=== PATIENT | female | born 1930 | race Caucasian/White ===

== ENCOUNTER 2020-04-12 16:42 | Inpatient (IN) | payer OTHER, BC ==
[2020-04-12] MEDS ORDERED: ACETAMINOPHEN 325 MG TABLET (FP) PO ONE (17:01)
[2020-04-12] MEDS ORDERED: ACETAMINOPHEN 325 MG TABLET (FP) ONE (17:14)
--- NOTE | 2020-04-12 17:25 | PDOC ---
History of Present Illness - General Chief Complaint: Cold Symptoms Stated Complaint: FEVER/NAUSEA Time Seen by Provider: 04/12/20 16:52 History Source: Patient Exam Limitations: No Limitations - History of Present Illness Initial Comments: Keysha Deutsch 89 F with PMH of HTN, presents to ER with 1D of Fever and vomiting x 2. 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 EMS temp: 103. She also reports th at she noticed redness and swelling in her right lower extremity this morning. She denies any chills, chest pain, cough, SOB, abdominal pain, diarrhea, Constipation, dysuria. No recent sick contact, lives with her daughter, who works at [employer]. 04/12/20 17:20 Past History - Medical History Allergies/Adverse Reactions: Allergies Allergy/AdvReac Type Severity Reaction Status Date / Time No Known Allergies Allergy Verified 04/12/20 18:05 Home Medications: Ambulatory Orders Diltiazem Cd [Cardizem Cd -] 240 mg PO DAILY 09/12/11 Multivit-Min/FA/Lycopene/Lut [Centrum Silver Tablet] 1 each PO DAILY 04/21/12 Omeprazole [Prilosec (RX)] 20 mg PO DAILY 04/21/12 Anemia: No Asthma: No Cancer: No Cardiac Disorders: No CVA: No COPD: No CHF: No Dementia: No Diabetes: No Dialysis: Yes (in the past) GI Disorders: No (ABD. PAIN) Disorders: No HTN: Yes Hypercholesterolemia: No Liver Disease: No Seizures: No Thyroid Disease: No - Surgical History Abdominal Surgery: No Appendectomy: No Cardiac Surgery: No Cholecystectomy: Yes Lung Surgery: No Neurologic Surgery: No Orthopedic Surgery: No - Psycho-Social/Smoking History Smoking Status: No Smoking History: Never smoked Have you smoked in the past 12 months: No Number of Cigarettes Smoked Daily: 0 - Substance Abuse Hx (Audit-C & DAST Scrn) How often the patient has a drink containing alcohol: Never Score: In Men: 4 or > Positive; In Women: 3 or > Positive: 0 Screen Result (Pos requires Nsg. Audit-10AR): Negative In the last yr the pt used illegal drug/Rx for NonMed reason: No Score: Yes response is considered Positive: 0 Screen Result (Positive result requires Nsg. DAST-10): Negative Review of Systems - Review of Systems Able to Perform ROS?: Yes Is the patient limited Czech proficient: No Constitutional: Yes: Fever. No: Chills, Night Sweats, Weakness HEENTM: No: Blurred Vision, Nose Congestion, Throat Pain, Difficulty Swallowing Respiratory: No: Cough, Shortness of Breath Cardiac (ROS): Yes: Edema. No: Chest Pain, Lightheadedness, Palpitations ABD/GI: Yes: Nausea, Vomiting. No: Constipated, Diarrhea : No: Burning, Dysuria Musculoskeletal: Yes: Joint Pain (chronic). No: Back Pain, Muscle Pain Integumentary: Yes: Erythema (RLE), Lesions (small healed induration w/scab on lateral aspect of RLE) Neurological: No: Headache, Numbness, Paresthesia, Dizziness *Physical Exam - Vital Signs Last Vital Signs Temp Pulse Resp BP Pulse Ox 100.4 F H 112 H 19 130/62 96 04/12/20 16:51 04/12/20 16:51 04/12/20 16:51 04/12/20 16:51 04/12/20 16:51 - Physical Exam General Appearance: No: Apparent Distress HEENT: positive: Normal ENT Inspection. negative: Nasal Congestion, Rhinorrhea Neck: positive: Supple. negative: Carotid bruit Respiratory/Chest: positive: Lungs Clear, Normal Breath Sounds. negative: Chest Tender, Rales, Rhonchi Cardiovascular: positive: Regular Rhythm, S1, S2, Edema, Murmur (4/6 systolic murmur anlong the left sternal border), Tachycardia. negative: JVD Vascular Pulses: Carotid (R): 2+, Carotid (L): 2+ Gastrointestinal/Abdominal: positive: Normal Bowel Sounds. negative: Tender, Guarding Integumentary: positive: Normal Color, Warm, Erythema (RLE medial and lateral aspect), Swelling (RLE>LLE, warm to touch, non tender) Neurologic: positive: Alert. negative: Fully Oriented (AAOx2, not oriented to month/year), Confused, Disoriented ED Treatment Course - LABORATORY CBC & Chemistry Diagram: 04/13/20 06:55 04/13/20 06:55 Medical Decision Making - Medical Decision Making 89 F with PMH of HTN, presents to ER with 1D of Fever and vomiting x 2. New onset of RLE swelling and erythema. #RLE cellulitis - CBC, CMP, LAC, Mg, PT(INR)/PTT - Ua - CXR: no acute pathology - Trop negative x1 - Blood culture, urine culture - Tylenol 975 PO - U/S b/l LE: no dvt - Vanc 1 gm + Rocephin 1 gm: UTI and RLE cellulitis - Dispo: Adm for IV abx 04/12/20 20:24 Discharge - Discharge Information Problems reviewed: Yes Clinical Impression/Diagnosis: UTI (urinary tract infection), Cellulitis, Leukocytosis Condition: Guarded - Follow up/Referral - Patient Discharge Instructions - Post Discharge Activity
[2020-04-12 17:51] LABS: BASO % 0.2 % (0-2.0); HEMATOCRIT 35.1 % (32.4-45.2); HEMOGLOBIN 11.5 GM/dL (10.7-15.3); MCH 32.6 pg (25.7-33.7); MCHC 32.8 g/dl (32.0-36.0); MEAN CELL VOLUME 99.2 fl (80-96); MEAN PLT VOLUME 7.7 fl (7.5-11.1); MONO % 4.8 % (3.8-10.2); PLATELET COUNT 231 K/MM3 (134-434); RBC 3.54 M/mm3 (3.60-5.2); RDW 12.3 % (11.6-15.6); WHITE BLOOD COUNT 18.8 K/mm3 (4.0-10.0)
[2020-04-12 17:59] LABS: INR 1.06 (0.83-1.09); PROTHROMBIN TIME (PATIENT) 12.5 SEC (9.7-13.0)
[2020-04-12 18:02] LABS: ACTIVATED PTT 25.7 SECONDS (25.2-36.5)
[2020-04-12 18:23] LABS: ALBUMIN 3.8 g/dl (3.4-5.0); BLOOD UREA NITROGEN 20.7 mg/dL (7-18); CALCIUM 9.3 mg/dL (8.5-10.1); GLUCOSE,RANDOM 141 mg/dL (74-106); MAGNESIUM 2.1 mg/dL (1.8-2.4); POTASSIUM 4.3 mmol/L (3.5-5.1); TOT PROT 6.5 g/dl (6.4-8.2)
[2020-04-12 18:24] LABS: ALK PHOS 130 U/L (45-117); ANION GAP 8 MMOL/L (8-16); BILIRUBIN,TOTAL 0.8 mg/dL (0.2-1); CHLORIDE 101 mmol/L (98-107); CO2 26 mmol/L (21-32); CREATININE 0.9 mg/dL (0.55-1.3); N-TERMINAL BNP 683.7 pg/ml (5-450); SGOT/AST 29 U/L (15-37); SGPT/ALT 26 U/L (13-61); SODIUM 135 mmol/L (136-145)
--- NOTE | 2020-04-12 18:27 | PDOC ---
Documentation entered by Rebecca Douglass SCRIBE, acting as scribe for Zuleyma Castillo DO. Zuleyma Castillo DO: This documentation has been prepared by the marcusibe, Rebecca Douglass SCRIBE, under my direction and personally reviewed by me in its entirety. I confirm that the documentation accurately reflects all work, treatment, procedures, and medical decision making performed by me. Attending Attestation - Resident Resident Name: Kenn Dozier - ED Attending Attestation I have performed the following: I have examined & evaluated the patient, The case was reviewed & discussed with the resident, I agree w/resident's findings & plan, Exceptions are as noted - HPI HPI: 04/12/20 17:00 Patient is an 89 year old female with a significant past medical history of hypertension who presents to the ED with fever and nausea/vomiting x1 day. 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 Patient also reports redness and swelling in her right leg since this morning. Patient denies: chills, SOB, cough, chest pain, abdominal pain, diarrhea, constipation, dysuria, recent contact with anyone sick, or any other related symptoms. Allergies: NKDA Patient currently lives with said daughter. - Physicial Exam PE: 04/12/20 18:23 Gen: aaox3, nad heart: +s1s2 reg lungs: cta b/l abd: soft, nt/nd +bs ext: edema and calf ttp RLE, redness, warmth, swelling RLE, pulses intact, erythema RLE, no knee ttp, no lymphangitic spread, FROM of arms and legs - Medical Decision Making 04/12/20 18:24 a/p: 89yo female with an episode of feeling lightheaded today and then had 2 episodes of n/v today -nbnb vomiting -pt with also new redness, swelling, ttp RLE -concern for cellulitis that started today -pt is febrile upon arrival -will send labs, ultrasound legs, cxr, ua, cultures, covid -will start ivf hydration -will monitor and reassess 04/12/20 19:12 cxr clear no duplex 04/12/20 19:13 wbc 18 iv abx ordered 04/12/20 20:25 ua + uti abx ordered pt with cellulitis, leukocytosis, uti abx given will be admitted microblog sent to [facility] for admission 04/12/20 20:41 case discussed with [facility] who accepts pt to service Heart Score/ECG Review - ECG Intrepretation Comment:: 04/12/20 17:12 sinus at 95, nl axis, nl interval, no acute st/t wave findings, lvh, q waves septally which are age indeterminate 04/12/20 17:13 Discharge - Discharge Information Problems reviewed: Yes Clinical Impression/Diagnosis: UTI (urinary tract infection), Cellulitis, Leukocytosis Condition: Guarded - Admission Yes - Follow up/Referral Referrals: Thong Castaneda MD [Primary Care Provider] - - Patient Discharge Instructions - Post Discharge Activity
[2020-04-12] MEDS ORDERED: VANCOMYCIN 1,000 MG in DEXTROSE 5%-WATER - 250 ML IVPB ONE (19:05)
[2020-04-12] MEDS ORDERED: VANCOMYCIN 1 GRAM (PRE-DOCKED) 1,000 MG/250 ML BAG IVPB ONE (19:31)
[2020-04-12 19:38] LABS: PLATELET ESTIMATE NORMAL
[2020-04-12 20:19] LABS: EPI CELLS >36 /uL (0-25.1); HYALINE CASTS 13 /uL (0-3.1); URINE APPEARANCE TURBID; URINE BILIRUBIN 1+ (NEGATIVE); URINE COLOR DK YELLOW; URINE GLUCOSE (UA) NEGATIVE (NEGATIVE); URINE KETONE TRACE (NEGATIVE); URINE LEUK ESTERASE 3+ (NEGATIVE); URINE NITRITE POSITIVE (NEGATIVE); URINE PROTEIN 2+ (NEGATIVE); URINE RBC 148 /uL (0-23.9); URINE WBC 11757 /uL (0-25.8)
[2020-04-12] MEDS ORDERED: CEFTRIAXONE 1 GM in DEXTROSE 5%-WATER - 100 ML IVPB ONE (20:22)
--- NOTE | 2020-04-12 21:03 | PN ---
Teaching Attending Note Name of Resident: Teresita Hopson ATTENDING PHYSICIAN STATEMENT I saw and evaluated the patient. I reviewed the resident's note and discussed the case with the resident. I agree with the resident's findings and plan as documented. SUBJECTIVE: Patient is an 89 year old woman with a PMH Hypertension who presents to the ER with fever and nausea/vomiting for one day. 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 Patient also reports redness and swelling in her right leg since this morning. Patient currently lives with said daughter. Patient denies chest pain, shortness of breath, abdominal pain, headache, palpitations, dizziness, diarrhea, constipation, dysuria, frequency, urgency, melena, hematochezia or hematuria. Denies alcohol, tobacco or illicit drug use. No sick contacts or recent travels. Family history is unremarkable. OBJECTIVE: Alert Vital Signs Period Temp Pulse Resp BP Sys/[place] Pulse Ox Last 24 Hr 98.7 F-100.4 F 88-112 18-19 107-130/62-64 96-100 HEENT: No Jaundice, eye redness or discharge, PERRLA, EOMI. Normocephalic, atraumatic. External ears are normal and hearing is grossly intact. No nasal discharge. Neck: Supple, nontender. No palpable adenopathy or thyromegaly. No JVD Chest: Good effort. Clear to auscultation and percussion. Heart: Regular. No S3, rub or murmur Abdomen: Not distended, soft, nontender and no HSM. No rebound or guarding. Normal bowel sounds. Ext: Peripheral pulses intact. Redness, warmth, swelling of RLE; calf tender to palpation. Skin: Warm and dry. No petechiae, rash or ecchymosis. Neuro: Alert. Oriented x3. CN 2-12 grossly intact. Sensation grossly intact in all four extremities and DTR are symmetric. Psych: Appropriate mood and affect. Good insight. Home Medications Medication Instructions Recorded Diltiazem Cd [Cardizem Cd -] 240 mg PO DAILY 09/12/11 Multivit-Min/FA/Lycopene/Lut 1 each PO DAILY 04/21/12 [Centrum Silver Tablet] Omeprazole [Prilosec (RX)] 20 mg PO DAILY 04/21/12 Abnormal Lab Results 04/12/20 04/12/20 04/12/20 17:15 17:15 19:39 WBC 18.8 H RBC 3.54 L MCV 99.2 H Absolute Neuts (auto) 17.7 H Neutrophils % 94.0 H D Neutrophils % (Manual) 97.0 H Lymphocytes % 1.0 L D Lymphocytes % (Manual) 0.0 L Monocytes % (Manual) 1 L Sodium 135 L BUN 20.7 H Random Glucose 141 H Alkaline Phosphatase 130 H B-Natriuretic Peptide 683.7 H Urine Protein 2+ H Urine Ketones Trace H Urine Blood 2+ H Urine Nitrite Positive H Urine Bilirubin 1+ H Ur Leukocyte Esterase 3+ H Current Medications Generic Name Dose Route Start Last Admin Trade Name Freq PRN Reason Stop Dose Admin Enoxaparin Sodium 40 mg 04/12/20 21:09 04/12/20 21:46 Lovenox - SQ 40 mg DAILY DARIA Administration Ceftriaxone Sodium 1 gm/ 50 mls @ 100 mls/hr 04/12/20 22:15 Dextrose IVPB 04/12/20 22:44 ONCE ONE Protocol ASSESSMENT AND PLAN: 1. Sepsis due to UTI/RLE cellulitis - Sepsis workup done. ER staff prescribed IV Ceftriaxone and IV Vancomycin for the patient. Will continue IV Ceftriaxone and IV NS, get HbA1c and consult ID. CXR shows cardiomegaly, increased interstitial infiltrates, unfolded aorta and wide mediastinum. Vascular study of legs didnot show DVT but revealed Patricia's cysts. Viral testing for COVID-19 ordered and patient placed on airborne, droplet and contact isolation. EKG shows NSR at 95/minute, LVH and QTc [address]-T wave changes. Initial troponin is negative. Will continue comprehensive care for all of patients comorbid conditions. 2. Obesity Counseled on the risks associated with obesity. Will provide patient all the necessary assistance, counseling and positive reinforcement to facilitate weight loss. Consult magazine feeder. 3. Hypertension Will restart suitable outpatient antihypertensive drugs when clinically appropriate. Subsequently, will revise regimen to ensure [id number] excellent BP control. Patient counseled on the injurious effects of uncontrolled hypertension. Nonpharmacologic measures to control hypertension like weight loss, salt restriction and exercise stressed. Importance of adherence to treatment regimen and attainment of normotension emphasized. 4. DVT prophylaxis - Lovenox 40 mg SQ q 24 hours. 5. Advance directives - Full code
[2020-04-12] MEDS: ENOXAPARIN NA (PORCINE) 40 MG/0.4 ML DISP.SYRIN SQ SCH (21:46)
[2020-04-12 21:59] VITALS: BMI 30.4
[2020-04-12] MEDS ORDERED: CEFTRIAXONE 1 GM in DEXTROSE 5%-WATER - 50 ML IVPB ONE (22:15)
[2020-04-12] MEDS ORDERED: DEXTROSE 5%-WATER - 50 ML IVPB ONE (22:23)
[2020-04-12] MEDS ORDERED: cefTRIAXone SODIUM 1 GM VIAL ONE (22:23)
--- NOTE | 2020-04-12 22:25 | HP ---
CHIEF COMPLAINT: swollen erythematous leg PCP: Dr. Castaneda HISTORY OF PRESENT ILLNESS: This is an 89 y/o woman with a PMHx of HTN (on dilt 240) who presents to the ER with fever (Pdip443.4) and n/v for one day. 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 She had difficulty driving the vehicle and was forced to nail puller via an ambulance that may have been called by one of the nearby passengers on the road due to patient's driving ability being in question. Pt was evaluated by EMS and they found her to have a fever and brought her to the ER. Patient reports redness and swelling in her right leg since this morning. Patient currently lives with her daughter. Patient denies chest pain, shortness of breath, abdominal pain, headache, palpitations, dizziness, diarrhea, constipation, dysuria, suprapubic tenderness, back pain frequency, urgency, melena, hematochezia or hematuria. No sick contacts or recent travels. Family history is unremarkable. ER course was notable for: (1)EKG- NSRqtc 447 (2)UA- 2+ protein, sp gravity 1.024, trace ketones, 2+ blood, positive nitrites, ubili 1+, 3+ leuk est, >11 K wbc's, >10K bacteria, epi cells >36, casts- 13 (3)duplex negative b/l LE's, cxr- no acute infiltrates or pathology, BC, Ua Cx sent PAST SURGICAL HISTORY: Social History: Smoking:denies Alcohol:denies Drugs: denies Allergies No Known Allergies Allergy (Verified 04/12/20 18:05) HOME MEDICATIONS: Home Medications Medication Instructions Recorded Diltiazem Cd [Cardizem Cd -] 240 mg PO DAILY 09/12/11 Multivit-Min/FA/Lycopene/Lut 1 each PO DAILY 04/21/12 [Centrum Silver Tablet] Omeprazole [Prilosec (RX)] 20 mg PO DAILY 04/21/12 REVIEW OF SYSTEMS Negative except as above PHYSICAL EXAMINATION Vital Signs - 24 hr 04/12/20 04/12/20 04/12/20 16:51 20:00 20:40 Temperature 100.4 F H 98.7 F 97.7 F Pulse Rate 112 H 70 Pulse Rate [ 88 Apical] Respiratory 19 18 18 Rate Blood Pressure 130/62 104/47 L Blood Pressure 107/64 [Right Arm] O2 Sat by Pulse 96 100 95 Oximetry (%) GENERAL: Awake, alert, and fully oriented, in no acute distress. LUNGS: Breath sounds equal, clear to auscultation bilaterally. No wheezes, and no crackles. No accessory muscle use. HEART: Regular rate and rhythm, normal S1 and S2 without murmur, rub or gallop. ABDOMEN: Soft, nontender, not distended, no suprapubic tenderness, no cva tenderness b/l LOWER EXTREMITIES: 2+ pulses, warm, well-perfused. No calf tenderness. Bakers cyst present b/l, trace peripheral edema, erythematous warm to touch RLE wrapped around leg but minimal in size just above ankle. NEUROLOGICAL: Cranial nerves II-XII intact. Normal speech. Normal gait. PSYCHIATRIC: Cooperative. Good eye contact. Appropriate mood and affect. SKIN: Warm to touch erythematous region of RLE with cellulitic changes Laboratory Results - last 24 hr 04/12/20 04/12/20 04/12/20 17:15 17:15 17:15 WBC 18.8 H RBC 3.54 L Hgb 11.5 Hct 35.1 D MCV 99.2 H MCH 32.6 MCHC 32.8 RDW 12.3 Plt Count 231 MPV 7.7 Absolute Neuts (auto) 17.7 H Neutrophils % 94.0 H D Neutrophils % (Manual) 97.0 H Band Neutrophils % 0.0 Lymphocytes % 1.0 L D Lymphocytes % (Manual) 0.0 L Monocytes % 4.8 Monocytes % (Manual) 1 L Eosinophils % 0.0 D Eosinophils % (Manual) 0.0 Basophils % 0.2 Basophils % (Manual) 0.0 Myelocytes % (Man) 1 Promyelocytes % (Man) 0 Blast Cells % (Manual) 0 Nucleated RBC % 0 Metamyelocytes 1 Platelet Estimate Normal PT with INR 12.50 INR 1.06 PTT (Actin FS) 25.7 Sodium 135 L Potassium 4.3 Chloride 101 Carbon Dioxide 26 Anion Gap 8 BUN 20.7 H Creatinine 0.9 Est GFR (CKD-EPI)AfAm 65.70 Est GFR (CKD-EPI)NonAf 56.69 Random Glucose 141 H Lactic Acid Calcium 9.3 Magnesium 2.1 Total Bilirubin 0.8 AST 29 ALT 26 Alkaline Phosphatase 130 H Creatine Kinase 40 Troponin I < 0.02 B-Natriuretic Peptide 683.7 H Total Protein 6.5 Albumin 3.8 Urine Color Urine Appearance Urine pH Ur Specific [place] Urine Protein Urine Glucose (UA) Urine Ketones Urine Blood Urine Nitrite Urine Bilirubin Urine Urobilinogen Ur Leukocyte Esterase Urine WBC (Auto) Urine RBC (Auto) Urine Casts (Auto) U Pathogenic Cast Auto U Epithel Cells (Auto) Urine Bacteria (Auto) 04/12/20 04/12/20 17:15 19:39 WBC RBC Hgb Hct MCV MCH MCHC RDW Plt Count MPV Absolute Neuts (auto) Neutrophils % Neutrophils % (Manual) Band Neutrophils % Lymphocytes % Lymphocytes % (Manual) Monocytes % Monocytes % (Manual) Eosinophils % Eosinophils % (Manual) Basophils % Basophils % (Manual) Myelocytes % (Man) Promyelocytes % (Man) Blast Cells % (Manual) Nucleated RBC % Metamyelocytes Platelet Estimate PT with INR INR PTT (Actin FS) Sodium Potassium Chloride Carbon Dioxide Anion Gap BUN Creatinine Est GFR (CKD-EPI)AfAm Est GFR (CKD-EPI)NonAf Random Glucose Lactic Acid 1.7 Calcium Magnesium Total Bilirubin AST ALT Alkaline Phosphatase Creatine Kinase Troponin I B-Natriuretic Peptide Total Protein Albumin Urine Color Dk yellow Urine Appearance Turbid Urine pH 5.0 Ur Specific [place] 1.024 Urine Protein 2+ H Urine Glucose (UA) Negative Urine Ketones Trace H Urine Blood 2+ H Urine Nitrite Positive H Urine Bilirubin 1+ H Urine Urobilinogen 1.0 Ur Leukocyte Esterase 3+ H Urine WBC (Auto) 22776 Urine RBC (Auto) 148 Urine Casts (Auto) 13 U Pathogenic Cast Auto No casts seen U Epithel Cells (Auto) >36 Urine Bacteria (Auto) >10,000 ASSESSMENT/PLAN: This is an 89 y/o woman with a PMHx of HTN (on dilt 240) who presents to the ER with fever (Pwsz984.4) and n/v for one day. 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 #Sepsis 2/2 Acute Nonpurulent RLE cellulitis and Acute uncomplicated cystitis - Cellulitis cause unclear but could be due to recent immobility during covid pandemic - Sepsis workup done. - Rx with cef and vanco in ED - will await ID recs (Dr. Baez) and they will weigh in on whether to continuing vanco is necessary given its first time and w/o worrisome signs for MRSA. - Rocephin is a good option to cover both for UTI and for the cellulitis - f/u urine culture and adjust abx accordingly - NS @75/hr - CXR shows cardiomegaly, increased interstitial infiltrates, unfolded aorta and wide mediastinum. - Vascular study of legs didnot show DVT but revealed Patricia's cysts. - EKG shows NSR at 95/minute, LVH and QTc [address]-T wave changes, initial troponin is negative. - BNP 683 #HTN - Continue home dilt 240 as prescribed - normotensive at this time #Hyperglycemia - sent A1C - denies any symptoms of diabetes at this time - f/u A1C DVT PPX: Lovenox 40mg SQ daily FEN - NS @75/hr - monitor lytes and replete prn - sodium controlled diet Full code Alexis Balbuena DO, MS PGY 2 Visit type - Medication Review Med list reviewed for High Risk Meds patients 65 and older: Yes - Emergency Visit Emergency Visit: Yes ED Registration Date: 04/12/20 Care time: The patient presented to the Emergency Department on the above date and was hospitalized for further evaluation of their emergent condition. - New Patient This patient is new to me today: Yes Date on this admission: 05/08/20 - Critical Care Critical Care patient: No ATTENDING PHYSICIAN STATEMENT I saw and evaluated the patient. I reviewed the resident's note and discussed the case with the resident. I agree with the resident's findings and plan as documented. SUBJECTIVE: OBJECTIVE: ASSESSMENT AND PLAN:
[2020-04-12] MEDS ORDERED: SODIUM CHLORIDE 1,000 ML IV SCH (23:45)
[2020-04-13] MEDS ORDERED: INSULIN (LEVEMIR) 100 UNITS/ML UNITS SQ ONE (05:54)
[2020-04-13 08:14] LABS: BASO % 0.2 % (0-2.0); EOS % 0.2 % (0-4.5); HEMATOCRIT 32.1 % (32.4-45.2); HEMOGLOBIN 10.5 GM/dL (10.7-15.3); LYMPH % 5.1 % (8-40); MCH 32.3 pg (25.7-33.7); MCHC 32.8 g/dl (32.0-36.0); MEAN CELL VOLUME 98.6 fl (80-96); MEAN PLT VOLUME 7.8 fl (7.5-11.1); MONO % 8.7 % (3.8-10.2); NEUT % 85.8 % (42.8-82.8); PLATELET COUNT 207 K/MM3 (134-434); RBC 3.26 M/mm3 (3.60-5.2); RDW 12.5 % (11.6-15.6); WHITE BLOOD COUNT 15.9 K/mm3 (4.0-10.0)
[2020-04-13 08:42] LABS: POTASSIUM 3.8 mmol/L (3.5-5.1)
[2020-04-13 08:50] LABS: BILIRUBIN,TOTAL 0.8 mg/dL (0.2-1); CALCIUM 8.8 mg/dL (8.5-10.1); CREATININE 0.7 mg/dL (0.55-1.3); MAGNESIUM 2.2 mg/dL (1.8-2.4); PHOSPHOROUS 2.5 mg/dL (2.5-4.9); TOT PROT 5.6 g/dl (6.4-8.2)
[2020-04-13] MEDS ORDERED: cefTRIAXone SODIUM 1 GM VIAL ONE (09:28)
[2020-04-13] MEDS ORDERED: DEXTROSE 5%-WATER - 50 ML IVPB ONE (09:28)
[2020-04-13] MEDS ORDERED: PT OWN MED DRAWER 7, Y5N ONE ×3 (09:29→16:41)
--- NOTE | 2020-04-13 09:39 | CON.ID ---
Consult Consult Specialty:: infectious diseases Referred by:: hospitalist Reason for Consultation:: cellulitis and swelling of the rt leg - History of Present Illness Chief Complaint: swelling of the rt leg and cellulitis History of Present Illness: 89 year old female with a significant past medical history of hypertension who presents to the ED with fever and nausea/vomiting x1 day. 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 Patient also reports redness and swelling in her right leg since this morning. according to the patient the swelling came on suddenly she also mentions that she has a cat and the cat scratches her on the leg.a small airam can be seen on the leg - History Source History Provided By: Patient, Family Member Limitations to Obtaining History: No Limitations - Past Medical History ...: No - Alcohol/Substance Use Hx Alcohol Use: No - Smoking History Smoking history: Never smoked Have you smoked in the past 12 months: No Aproximately how many cigarettes per day: 0 Home Medications - Allergies Allergies/Adverse Reactions: Allergies Allergy/AdvReac Type Severity Reaction Status Date / Time No Known Allergies Allergy Verified 04/12/20 18:05 - Home Medications Home Medications: Ambulatory Orders Diltiazem Cd [Cardizem Cd -] 240 mg PO DAILY 09/12/11 Multivit-Min/FA/Lycopene/Lut [Centrum Silver Tablet] 1 each PO DAILY 04/21/12 Omeprazole [Prilosec (RX)] 20 mg PO DAILY 04/21/12 Review of Systems - Review of Systems Constitutional: reports: Fever Eyes: reports: No Symptoms HENT: reports: No Symptoms Neck: reports: No Symptoms Cardiovascular: reports: No Symptoms Respiratory: reports: No Symptoms Gastrointestinal: reports: No Symptoms Genitourinary: reports: No Symptoms Musculoskeletal: reports: Joint Swelling, Other Integumentary: reports: Change in Color, Erythema, Wound Neurological: reports: No Symptoms Endocrine: reports: No Symptoms Hematology/Lymphatic: reports: No Symptoms Psychiatric: reports: No Symptoms Physical Exam Vital Signs: Vital Signs Temperature 98.1 F 04/13/20 05:36 Pulse Rate 62 04/13/20 05:36 Respiratory Rate 20 04/13/20 05:36 Blood Pressure 113/54 L 04/13/20 05:36 O2 Sat by Pulse Oximetry (%) 92 L 04/13/20 05:36 Constitutional: Yes: Well Nourished, Calm, Mild Distress Eyes: Yes: Conjunctiva Clear HENT: Yes: Atraumatic, Normocephalic Neck: Yes: Supple, Trachea Midline Cardiovascular: Yes: Regular Rate and Rhythm Respiratory: Yes: Regular, CTA Bilaterally Gastrointestinal: Yes: Normal Bowel Sounds, Soft Musculoskeletal: Yes: Other Extremities: Yes: Erythema, Other (scratch airam noted superficial on the skin of the leg) Integumentary: Yes: Erythema, Other Wound/Incision: Yes: Clean/Dry, Open to air Neurological: Yes: Alert, Oriented Psychiatric: Yes: Alert, Oriented Labs: CBC, BMP 04/13/20 06:55 04/13/20 06:55 Imaging - Results Chest X-ray: Report Reviewed, Image Reviewed Assessment/Plan this patient with multiple medical problems coming in with sudden swelling and cellulitis of the leg 1 get an xray of the ankle 2 will switch to unasyn 3.check her tetanus shot status 4.elevation of the leg 5.monitor wbc
[2020-04-13] MEDS ORDERED: CEFTRIAXONE 1 GM in DEXTROSE 5%-WATER - 50 ML IVPB SCH (10:00)
[2020-04-13] MEDS: ENOXAPARIN NA (PORCINE) 40 MG/0.4 ML DISP.SYRIN SQ SCH (12:01)
[2020-04-13] MEDS: AMPICILLIN NA/SULBACTAM NA 3 GM in SODIUM CHLORIDE 100 ML IVPB SCH ×2 (12:20→17:07)
--- NOTE | 2020-04-13 14:46 | EKG ---
Test Reason : Blood Pressure : / mmHG Vent. Rate : 095 BPM Atrial Rate : 095 BPM P-R Int : 190 ms QRS Dur : 098 ms QT Int : 356 ms P-R-T Axes : 037 -15 070 degrees QTc Int : 447 ms NORMAL SINUS RHYTHM WITH SINUS ARRHYTHMIA MINIMAL VOLTAGE CRITERIA FOR LVH, MAY BE NORMAL VARIANT BORDERLINE ECG WHEN COMPARED WITH ECG OF 17-MAY-2011 12:49, NO SIGNIFICANT CHANGE WAS FOUND Confirmed by ALFREDO ROBERTSON, SAAD ([id number]) on 04/13/2020 2:46:29 PM Referred By: Confirmed By:SAAD FUENTES MD
--- NOTE | 2020-04-13 16:15 | PN ---
Teaching Attending Note Name of Resident: Anibal Garcia ATTENDING PHYSICIAN STATEMENT I saw and evaluated the patient. I reviewed the resident's note and discussed the case with the resident. I agree with the resident's findings and plan as documented. SUBJECTIVE: Complains of RLE discomfort, heaviness, swelling, redness. OBJECTIVE: Fever - Tmax 100.4. Hemodynamically Stable. Last Vital Signs Temp Pulse Resp BP Pulse Ox 98.1 F 68 18 101/52 L 95 04/13/20 14:00 04/13/20 14:00 04/13/20 14:00 04/13/20 14:00 04/13/20 14:00 HEENT - Atraumatic, Normocephalic. Heart - S1, S2, RRR Lungs - clear to auscultation Abdomen - Soft, non-tender. Bowel Sounds normal. Extremities - RLE edema+/erythema+/tenderness+. Neurovascularly intact. Neuro - AAO x 3. Tone/Power normal all extremities. Laboratory Results - last 24 hr 04/12/20 04/12/20 04/12/20 17:15 17:15 17:15 WBC 18.8 H RBC 3.54 L Hgb 11.5 Hct 35.1 D MCV 99.2 H MCH 32.6 MCHC 32.8 RDW 12.3 Plt Count 231 MPV 7.7 Absolute Neuts (auto) 17.7 H Neutrophils % 94.0 H D Neutrophils % (Manual) 97.0 H Band Neutrophils % 0.0 Lymphocytes % 1.0 L D Lymphocytes % (Manual) 0.0 L Monocytes % 4.8 Monocytes % (Manual) 1 L Eosinophils % 0.0 D Eosinophils % (Manual) 0.0 Basophils % 0.2 Basophils % (Manual) 0.0 Myelocytes % (Man) 1 Promyelocytes % (Man) 0 Blast Cells % (Manual) 0 Nucleated RBC % 0 Metamyelocytes 1 Platelet Estimate Normal PT with INR 12.50 INR 1.06 PTT (Actin FS) 25.7 Sodium 135 L Potassium 4.3 Chloride 101 Carbon Dioxide 26 Anion Gap 8 BUN 20.7 H Creatinine 0.9 Est GFR (CKD-EPI)AfAm 65.70 Est GFR (CKD-EPI)NonAf 56.69 Random Glucose 141 H Hemoglobin A1c % Lactic Acid Calcium 9.3 Phosphorus Magnesium 2.1 Total Bilirubin 0.8 AST 29 ALT 26 Alkaline Phosphatase 130 H Creatine Kinase 40 Troponin I < 0.02 B-Natriuretic Peptide 683.7 H Total Protein 6.5 Albumin 3.8 Vitamin B12 Serum Folate Urine Color Urine Appearance Urine pH Ur Specific [place] Urine Protein Urine Glucose (UA) Urine Ketones Urine Blood Urine Nitrite Urine Bilirubin Urine Urobilinogen Ur Leukocyte Esterase Urine WBC (Auto) Urine RBC (Auto) Urine Casts (Auto) U Pathogenic Cast Auto U Epithel Cells (Auto) Urine Bacteria (Auto) COVID-19 (RHETT) 04/12/20 04/12/20 04/12/20 17:15 17:15 19:39 WBC RBC Hgb Hct MCV MCH MCHC RDW Plt Count MPV Absolute Neuts (auto) Neutrophils % Neutrophils % (Manual) Band Neutrophils % Lymphocytes % Lymphocytes % (Manual) Monocytes % Monocytes % (Manual) Eosinophils % Eosinophils % (Manual) Basophils % Basophils % (Manual) Myelocytes % (Man) Promyelocytes % (Man) Blast Cells % (Manual) Nucleated RBC % Metamyelocytes Platelet Estimate PT with INR INR PTT (Actin FS) Sodium Potassium Chloride Carbon Dioxide Anion Gap BUN Creatinine Est GFR (CKD-EPI)AfAm Est GFR (CKD-EPI)NonAf Random Glucose Hemoglobin A1c % Lactic Acid 1.7 Calcium Phosphorus Magnesium Total Bilirubin AST ALT Alkaline Phosphatase Creatine Kinase Troponin I B-Natriuretic Peptide Total Protein Albumin Vitamin B12 Serum Folate Urine Color Dk yellow Urine Appearance Turbid Urine pH 5.0 Ur Specific [place] 1.024 Urine Protein 2+ H Urine Glucose (UA) Negative Urine Ketones Trace H Urine Blood 2+ H Urine Nitrite Positive H Urine Bilirubin 1+ H Urine Urobilinogen 1.0 Ur Leukocyte Esterase 3+ H Urine WBC (Auto) 59761 Urine RBC (Auto) 148 Urine Casts (Auto) 13 U Pathogenic Cast Auto No casts seen U Epithel Cells (Auto) >36 Urine Bacteria (Auto) >10,000 COVID-19 (RHETT) Not detected 04/13/20 04/13/20 04/13/20 06:55 06:55 06:55 WBC 15.9 H RBC 3.26 L Hgb 10.5 L Hct 32.1 L MCV 98.6 H MCH 32.3 MCHC 32.8 RDW 12.5 Plt Count 207 MPV 7.8 Absolute Neuts (auto) 13.7 H Neutrophils % 85.8 H Neutrophils % (Manual) Band Neutrophils % Lymphocytes % 5.1 L D Lymphocytes % (Manual) Monocytes % 8.7 D Monocytes % (Manual) Eosinophils % 0.2 D Eosinophils % (Manual) Basophils % 0.2 Basophils % (Manual) Myelocytes % (Man) Promyelocytes % (Man) Blast Cells % (Manual) Nucleated RBC % 0 Metamyelocytes Platelet Estimate PT with INR INR PTT (Actin FS) Sodium 139 Potassium 3.8 Chloride 105 Carbon Dioxide 28 Anion Gap 6 L BUN 18.0 Creatinine 0.7 Est GFR (CKD-EPI)AfAm 89.03 Est GFR (CKD-EPI)NonAf 76.82 Random Glucose 92 Hemoglobin A1c % 5.0 Lactic Acid Calcium 8.8 Phosphorus 2.5 Magnesium 2.2 Total Bilirubin 0.8 AST 21 ALT 21 Alkaline Phosphatase 108 Creatine Kinase Troponin I B-Natriuretic Peptide Total Protein 5.6 L Albumin 3.0 L Vitamin B12 1657 H Serum Folate 6 Urine Color Urine Appearance Urine pH Ur Specific [place] Urine Protein Urine Glucose (UA) Urine Ketones Urine Blood Urine Nitrite Urine Bilirubin Urine Urobilinogen Ur Leukocyte Esterase Urine WBC (Auto) Urine RBC (Auto) Urine Casts (Auto) U Pathogenic Cast Auto U Epithel Cells (Auto) Urine Bacteria (Auto) COVID-19 (RHETT) Current Medications Generic Name Dose Route Start Last Admin Trade Name Freq PRN Reason Stop Dose Admin Diltiazem HCl 240 mg 04/13/20 10:00 04/13/20 11:12 Cardizem Cd - PO Not Given DAILY DARIA Enoxaparin Sodium 40 mg 04/12/20 21:09 04/13/20 12:01 Lovenox - SQ 40 mg DAILY DARIA Administration Ampicillin Sodium/Sulbactam 100 mls @ 200 mls/hr 04/13/20 11:15 04/13/20 12:20 Sodium 3 gm/ Sodium Chloride IVPB 200 mls/hr Q8H-IV DARIA Administration Home Medications Medication Instructions Recorded Diltiazem Cd [Cardizem Cd -] 240 mg PO DAILY 09/12/11 Multivit-Min/FA/Lycopene/Lut 1 each PO DAILY 04/21/12 [Centrum Silver Tablet] Omeprazole [Prilosec (RX)] 20 mg PO DAILY 04/21/12 ASSESSMENT AND PLAN: 89 yea rold female with history of HTN presents with RLE edema/redness/tenderness, associated with nausea, and 1 episode of vomiting. 1. Sepsis secondary to RLE Cellulitis Fever, leukocytosis US Duplex - negative for DVT, bilateral Patricia's Cysts. XRay Foot/Ankle - negative for bony injury Treated with Ceftriaxone/1 dose of Vanc - transitioned to Unasyn by ID. 2. HTN - Continue Diltiazem. 3. Macrocytic Anemia - B12 level 1657. Folic Acid borderline at 6. Will supplement. DVT Px - Lovenox SQ
--- NOTE | 2020-04-13 17:55 | PN ---
Physical Exam: SUBJECTIVE: No overnight events. Patient seen and examined. Endorsed swelling/erythema of R leg OBJECTIVE: Vital Signs Period Temp Pulse Resp BP Sys/[place] Pulse Ox Last 24 Hr 97.7 F-98.7 F 62-88 18-20 101-113/47-64 92-100 GENERAL: The patient is awake, alert, and fully oriented, in no acute distress. HEENT: Normal with no signs of trauma. No ptosis. MMM LUNGS: Breath sounds equal, clear to auscultation bilaterally, no wheezes, no crackles, no accessory muscle use. HEART: Regular rate and rhythm, S1, S2, systolic murmur on L sternal border ABDOMEN: Soft, nontender, nondistended, normoactive bowel sounds EXTREMITIES: TP, DP 2+ b/l, warm, well-perfused, tone WNL, healed scratch/bite wound on R lateral leg// R LE erythematous, edema 3+ to mid tibia, 2+ edema up to the knee NEUROLOGICAL: Normal speech, gait not observed. PSYCH: Normal mood, normal affect. Laboratory Results - last 24 hr 04/12/20 04/12/20 04/12/20 17:15 17:15 17:15 WBC 18.8 H RBC 3.54 L Hgb 11.5 Hct 35.1 D MCV 99.2 H MCH 32.6 MCHC 32.8 RDW 12.3 Plt Count 231 MPV 7.7 Absolute Neuts (auto) 17.7 H Neutrophils % 94.0 H D Neutrophils % (Manual) 97.0 H Band Neutrophils % 0.0 Lymphocytes % 1.0 L D Lymphocytes % (Manual) 0.0 L Monocytes % 4.8 Monocytes % (Manual) 1 L Eosinophils % 0.0 D Eosinophils % (Manual) 0.0 Basophils % 0.2 Basophils % (Manual) 0.0 Myelocytes % (Man) 1 Promyelocytes % (Man) 0 Blast Cells % (Manual) 0 Nucleated RBC % 0 Metamyelocytes 1 Platelet Estimate Normal PT with INR 12.50 INR 1.06 PTT (Actin FS) 25.7 Sodium 135 L Potassium 4.3 Chloride 101 Carbon Dioxide 26 Anion Gap 8 BUN 20.7 H Creatinine 0.9 Est GFR (CKD-EPI)AfAm 65.70 Est GFR (CKD-EPI)NonAf 56.69 Random Glucose 141 H Hemoglobin A1c % Lactic Acid Calcium 9.3 Phosphorus Magnesium 2.1 Total Bilirubin 0.8 AST 29 ALT 26 Alkaline Phosphatase 130 H Creatine Kinase 40 Troponin I < 0.02 B-Natriuretic Peptide 683.7 H Total Protein 6.5 Albumin 3.8 Vitamin B12 Serum Folate Urine Color Urine Appearance Urine pH Ur Specific [place] Urine Protein Urine Glucose (UA) Urine Ketones Urine Blood Urine Nitrite Urine Bilirubin Urine Urobilinogen Ur Leukocyte Esterase Urine WBC (Auto) Urine RBC (Auto) Urine Casts (Auto) U Pathogenic Cast Auto U Epithel Cells (Auto) Urine Bacteria (Auto) COVID-19 (RHETT) 04/12/20 04/12/20 04/12/20 17:15 17:15 19:39 WBC RBC Hgb Hct MCV MCH MCHC RDW Plt Count MPV Absolute Neuts (auto) Neutrophils % Neutrophils % (Manual) Band Neutrophils % Lymphocytes % Lymphocytes % (Manual) Monocytes % Monocytes % (Manual) Eosinophils % Eosinophils % (Manual) Basophils % Basophils % (Manual) Myelocytes % (Man) Promyelocytes % (Man) Blast Cells % (Manual) Nucleated RBC % Metamyelocytes Platelet Estimate PT with INR INR PTT (Actin FS) Sodium Potassium Chloride Carbon Dioxide Anion Gap BUN Creatinine Est GFR (CKD-EPI)AfAm Est GFR (CKD-EPI)NonAf Random Glucose Hemoglobin A1c % Lactic Acid 1.7 Calcium Phosphorus Magnesium Total Bilirubin AST ALT Alkaline Phosphatase Creatine Kinase Troponin I B-Natriuretic Peptide Total Protein Albumin Vitamin B12 Serum Folate Urine Color Dk yellow Urine Appearance Turbid Urine pH 5.0 Ur Specific [place] 1.024 Urine Protein 2+ H Urine Glucose (UA) Negative Urine Ketones Trace H Urine Blood 2+ H Urine Nitrite Positive H Urine Bilirubin 1+ H Urine Urobilinogen 1.0 Ur Leukocyte Esterase 3+ H Urine WBC (Auto) 66843 Urine RBC (Auto) 148 Urine Casts (Auto) 13 U Pathogenic Cast Auto No casts seen U Epithel Cells (Auto) >36 Urine Bacteria (Auto) >10,000 COVID-19 (RHETT) Not detected 04/13/20 04/13/20 04/13/20 06:55 06:55 06:55 WBC 15.9 H RBC 3.26 L Hgb 10.5 L Hct 32.1 L MCV 98.6 H MCH 32.3 MCHC 32.8 RDW 12.5 Plt Count 207 MPV 7.8 Absolute Neuts (auto) 13.7 H Neutrophils % 85.8 H Neutrophils % (Manual) Band Neutrophils % Lymphocytes % 5.1 L D Lymphocytes % (Manual) Monocytes % 8.7 D Monocytes % (Manual) Eosinophils % 0.2 D Eosinophils % (Manual) Basophils % 0.2 Basophils % (Manual) Myelocytes % (Man) Promyelocytes % (Man) Blast Cells % (Manual) Nucleated RBC % 0 Metamyelocytes Platelet Estimate PT with INR INR PTT (Actin FS) Sodium 139 Potassium 3.8 Chloride 105 Carbon Dioxide 28 Anion Gap 6 L BUN 18.0 Creatinine 0.7 Est GFR (CKD-EPI)AfAm 89.03 Est GFR (CKD-EPI)NonAf 76.82 Random Glucose 92 Hemoglobin A1c % 5.0 Lactic Acid Calcium 8.8 Phosphorus 2.5 Magnesium 2.2 Total Bilirubin 0.8 AST 21 ALT 21 Alkaline Phosphatase 108 Creatine Kinase Troponin I B-Natriuretic Peptide Total Protein 5.6 L Albumin 3.0 L Vitamin B12 1657 H Serum Folate 6 Urine Color Urine Appearance Urine pH Ur Specific [place] Urine Protein Urine Glucose (UA) Urine Ketones Urine Blood Urine Nitrite Urine Bilirubin Urine Urobilinogen Ur Leukocyte Esterase Urine WBC (Auto) Urine RBC (Auto) Urine Casts (Auto) U Pathogenic Cast Auto U Epithel Cells (Auto) Urine Bacteria (Auto) COVID-19 (RHETT) Active Medications Generic Name Dose Route Start Last Admin Trade Name Umeshq PRN Reason Stop Dose Admin Diltiazem HCl 240 mg 04/13/20 10:00 04/13/20 11:12 Cardizem Cd - PO Not Given DAILY [facility] Enoxaparin Sodium 40 mg 04/12/20 21:09 04/13/20 12:01 Lovenox - SQ 40 mg DAILY DARIA Administration Folic Acid 1 mg 04/14/20 10:00 Folic Acid - PO DAILY DARIA Ampicillin Sodium/Sulbactam 100 mls @ 200 mls/hr 04/13/20 11:15 04/13/20 17:07 Sodium 3 gm/ Sodium Chloride IVPB 200 mls/hr Q8H-IV DARIA Administration -CXR: b/l increased lung markings likely 2/2 pour inspiratory effort, pulmonary venous congestion -EKG: NSR at 95/minute, LVH and QTc [address]-T wave changes, - BNP 683 ASSESSMENT/PLAN: 89 YO F PMH HTN p/w acute-onset RLE erythema, edema, and pain w/ nausea and an episode of vomiting. Admitted for sepsis 2/2 RLE cellulitis #Sepsis secondary to RLE Cellulitis -100.4 F, HR 112, WBC 18.8 on admission -US duplex LE: negative for DVT; b/l bakers cysts -healed wound on lateral RLE. h/o cat scratch/bite. pt unable to recall if it was caused by scratch or bite -s/p vanc & zosyn. ID consult appreciated. Started on unasyn (ampillicin/sulbactam) 3 gm -elevation of leg -check tetanus shot status #Macrocytic Anemia B12 elevated 1657// Folic acid borderline low (6) -Folate started #UA possibly suggestive of UTI -UA- 2+ protein, sp gravity 1.024, trace ketones, 2+ blood, positive nitrites, ubili 1+, 3+ leuk est, >11 K wbc's, >10K bacteria, epi cells >36, casts- 13 -awatiing Ucx #HTN -c/w home rx diltiazem 240 mg PO daily #Hyperglycemia -resolved -HbgA1C 5.0. DM ruled out #DVT PPX Lovenox 40mg SQ daily #FEN -no IVF - monitor lytes - sodium controlled diet #DISPO maintain med surg Visit type - Emergency Visit Emergency Visit: Yes ED Registration Date: 04/12/20 Care time: The patient presented to the Emergency Department on the above date and was hospitalized for further evaluation of their emergent condition. - New Patient This patient is new to me today: Yes Date on this admission: 04/13/20 - Critical Care Critical Care patient: No - Medication Review Med list reviewed for High Risk Meds patients 65 and older: Yes ATTENDING PHYSICIAN STATEMENT I saw and evaluated the patient. I reviewed the resident's note and discussed the case with the resident. I agree with the resident's findings and plan as documented. SUBJECTIVE: OBJECTIVE: ASSESSMENT AND PLAN:
[2020-04-14] MEDS: AMPICILLIN NA/SULBACTAM NA 3 GM in SODIUM CHLORIDE 100 ML IVPB SCH ×3 (01:09→20:07)
[2020-04-14 08:19] LABS: BASO % 0.3 % (0-2.0); EOS % 0.7 % (0-4.5); HEMATOCRIT 31.6 % (32.4-45.2); HEMOGLOBIN 10.6 GM/dL (10.7-15.3); LYMPH % 8.8 % (8-40); MCH 33.2 pg (25.7-33.7); MCHC 33.7 g/dl (32.0-36.0); MEAN CELL VOLUME 98.5 fl (80-96); MEAN PLT VOLUME 7.8 fl (7.5-11.1); MONO % 11.6 % (3.8-10.2); NEUT % 78.6 % (42.8-82.8); PLATELET COUNT 212 K/MM3 (134-434); RDW 12.4 % (11.6-15.6); WHITE BLOOD COUNT 8.1 K/mm3 (4.0-10.0)
[2020-04-14 08:40] LABS: BLOOD UREA NITROGEN 12.6 mg/dL (7-18); CALCIUM 8.8 mg/dL (8.5-10.1); CREATININE 0.6 mg/dL (0.55-1.3); MAGNESIUM 2.2 mg/dL (1.8-2.4); PHOSPHOROUS 2.3 mg/dL (2.5-4.9); POTASSIUM 3.8 mmol/L (3.5-5.1)
[2020-04-14] MEDS ORDERED: POTASSIUM PHOSPHATE 15 MM in SODIUM CHLORIDE 250 ML IVPB ONE (10:15)
[2020-04-14] MEDS: ENOXAPARIN NA (PORCINE) 40 MG/0.4 ML DISP.SYRIN SQ SCH (10:17)
[2020-04-14] MEDS: FOLIC ACID 1 MG TABLET (FP) PO SCH (10:18)
--- NOTE | 2020-04-14 10:33 | PN ---
Progress Note, Physician History of Present Illness: stable doing well leg looks better awaiting for organism - Current Medication List Current Medications: Active Medications Diltiazem HCl (Cardizem Cd -) 240 mg PO DAILY [facility] Last Admin: 04/14/20 10:18 Dose: 240 mg Documented by: Enoxaparin Sodium (Lovenox -) 40 mg SQ DAILY [facility] Last Admin: 04/14/20 10:17 Dose: 40 mg Documented by: Folic Acid (Folic Acid -) 1 mg PO DAILY [facility] Last Admin: 04/14/20 10:18 Dose: 1 mg Documented by: Ampicillin Sodium/Sulbactam (Sodium 3 gm/ Sodium Chloride) 100 mls @ 200 mls/hr IVPB Q8H-IV [facility] Last Admin: 04/14/20 10:19 Dose: 200 mls/hr Documented by: Potassium Phosphate 15 mm/ (Sodium Chloride) 255 mls @ 42.5 mls/hr IVPB ONCE ONE Stop: 04/14/20 16:14 - Objective Vital Signs: Vital Signs Temperature 98.2 F 04/14/20 06:56 Pulse Rate 69 04/14/20 06:56 Respiratory Rate 20 04/14/20 06:56 Blood Pressure 123/45 L 04/14/20 06:56 O2 Sat by Pulse Oximetry (%) 92 L 04/14/20 06:56 Constitutional: Yes: No Distress, Calm Cardiovascular: Yes: S1, S2 Respiratory: Yes: Regular, CTA Bilaterally Gastrointestinal: Yes: Normal Bowel Sounds, Soft Musculoskeletal: Yes: WNL Extremities: Yes: WNL Integumentary: Yes: Erythema (improved) Neurological: Yes: Alert, Oriented Psychiatric: Yes: Alert, Oriented Labs: CBC, BMP 04/14/20 07:10 04/14/20 07:10 INR, PTT INR 1.06 (0.83-1.09) 04/12/20 17:15 Assessment/Plan 89 yea rold female with history of HTN presents with RLE edema/redness/tenderness, associated with nausea, and 1 episode of vomiting. 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
[2020-04-14] MEDS ORDERED: PT OWN MED DRAWER 7, Y5N ONE ×2 (13:20→20:05)
--- NOTE | 2020-04-14 14:32 | PN ---
Physical Exam: SUBJECTIVE: No overnight events. Patient seen and examined. Endorsed edema/erythema of R leg improved. Denied pain OBJECTIVE: Vital Signs Period Temp Pulse Resp BP Sys/[place] Pulse Ox Last 24 Hr 97.3 F-98.4 F 59-69 20-20 115-135/45-56 92-97 GENERAL: The patient is awake, alert, and fully oriented, in no acute distress. HEENT: Normal with no signs of trauma. No ptosis. MMM LUNGS: Breath sounds equal, clear to auscultation bilaterally, no wheezes, no crackles, no accessory muscle use. HEART: Regular rate and rhythm, S1, S2, systolic murmur on L sternal border ABDOMEN: Soft, nontender, nondistended, normoactive bowel sounds EXTREMITIES: TP, DP 2+ b/l, warm, well-perfused, tone WNL, healed scratch/bite wound on R lateral leg// R LE edema 3+ to mid tibia, 2+ edema up to the knee. Less erythematous NEUROLOGICAL: Normal speech, gait not observed. PSYCH: Normal mood, normal affect. Laboratory Results - last 24 hr 04/14/20 04/14/20 07:10 07:10 WBC 8.1 RBC 3.20 L Hgb 10.6 L Hct 31.6 L MCV 98.5 H MCH 33.2 MCHC 33.7 RDW 12.4 Plt Count 212 MPV 7.8 Absolute Neuts (auto) 6.4 Neutrophils % 78.6 Lymphocytes % 8.8 D Monocytes % 11.6 H Eosinophils % 0.7 D Basophils % 0.3 Nucleated RBC % 0 Sodium 141 Potassium 3.8 Chloride 108 H Carbon Dioxide 25 Anion Gap 8 BUN 12.6 Creatinine 0.6 Est GFR (CKD-EPI)AfAm 93.66 Est GFR (CKD-EPI)NonAf 80.81 Random Glucose 97 Calcium 8.8 Phosphorus 2.3 L Magnesium 2.2 Active Medications Generic Name Dose Route Start Last Admin Trade Name Freq PRN Reason Stop Dose Admin Diltiazem HCl 240 mg 04/13/20 10:00 04/14/20 10:18 Cardizem Cd - PO 240 mg DAILY DARIA Administration Enoxaparin Sodium 40 mg 04/12/20 21:09 04/14/20 10:17 Lovenox - SQ 40 mg DAILY DARIA Administration Folic Acid 1 mg 04/14/20 10:00 04/14/20 10:18 Folic Acid - PO 1 mg DAILY DARIA Administration Ampicillin Sodium/Sulbactam 100 mls @ 200 mls/hr 04/13/20 11:15 04/14/20 10:19 Sodium 3 gm/ Sodium Chloride IVPB 200 mls/hr Q8H-IV DARIA Administration Potassium Phosphate 15 mm/ 255 mls @ 42.5 mls/hr 04/14/20 10:15 04/14/20 13:30 Sodium Chloride IVPB 04/14/20 16:14 42.5 mls/hr ONCE ONE Administration -CXR: b/l increased lung markings likely 2/2 pour inspiratory effort, pulmonary venous congestion -EKG: NSR at 95/minute, LVH and QTc [address]-T wave changes, - BNP 683 ASSESSMENT/PLAN: 89 YO F PMH HTN p/w acute-onset RLE erythema, edema, and pain w/ nausea and an episode of vomiting. Admitted for sepsis 2/2 RLE cellulitis #Sepsis secondary to RLE Cellulitis & UTI -100.4 F, HR 112, WBC 18.8 on admission -US duplex LE: negative for DVT; b/l bakers cysts -healed wound on lateral RLE. h/o cat scratch/bite. pt unable to recall if it was caused by scratch or bite -s/p vanc & ceftriaxone. ID consult appreciated. Will switch to oral abx tomorrow. -c/w unasyn (ampillicin/sulbactam) 3 gm. Day #2 -elevation of leg -UA- 2+ protein, sp gravity 1.024, trace ketones, 2+ blood, positive nitrites, ubili 1+, 3+ leuk est, >11 K wbc's, >10K bacteria, epi cells >36, casts- 13 -ucx: lactose fermenting neg bacilli -c/w unasyn -pending ucx sensitivity #Macrocytic Anemia B12 elevated 1657// Folic acid borderline low (6) -c/w Folate #HTN -c/w home rx diltiazem 240 mg PO daily #Hyperglycemia -resolved -HbgA1C 5.0. DM ruled out #Hypophosphatemia phos repleted #DVT PPX Lovenox 40mg SQ daily #FEN -no IVF - monitor lytes - sodium controlled diet #DISPO maintain med surg Visit type - Emergency Visit Emergency Visit: Yes ED Registration Date: 04/12/20 Care time: The patient presented to the Emergency Department on the above date and was hospitalized for further evaluation of their emergent condition. - New Patient This patient is new to me today: No - Critical Care Critical Care patient: No - Medication Review Med list reviewed for High Risk Meds patients 65 and older: Yes ATTENDING PHYSICIAN STATEMENT I saw and evaluated the patient. I reviewed the resident's note and discussed the case with the resident. I agree with the resident's findings and plan as documented. SUBJECTIVE: OBJECTIVE: ASSESSMENT AND PLAN:
--- NOTE | 2020-04-14 14:39 | PN ---
Teaching Attending Note Name of Resident: Anibal Garcia ATTENDING PHYSICIAN STATEMENT I saw and evaluated the patient. I reviewed the resident's note and discussed the case with the resident. I agree with the resident's findings and plan as documented. SUBJECTIVE: RLE discomfort, swelling, redness improving. No fever/chills. OBJECTIVE: Fever resolved. Hemodynamically Stable. Last Vital Signs Temp Pulse Resp BP Pulse Ox 97.3 F L 59 L 20 135/56 L 97 04/14/20 14:17 04/14/20 14:17 04/14/20 14:17 04/14/20 14:17 04/14/20 14:17 Heart - S1, S2, RRR Lungs - clear to auscultation Abdomen - Soft, non-tender. Bowel Sounds normal. Extremities - RLE edema+/erythema+/tenderness+. Neurovascularly intact. Neuro - AAO x 3. Tone/Power normal all extremities. Laboratory Results - last 24 hr 04/14/20 04/14/20 07:10 07:10 WBC 8.1 RBC 3.20 L Hgb 10.6 L Hct 31.6 L MCV 98.5 H MCH 33.2 MCHC 33.7 RDW 12.4 Plt Count 212 MPV 7.8 Absolute Neuts (auto) 6.4 Neutrophils % 78.6 Lymphocytes % 8.8 D Monocytes % 11.6 H Eosinophils % 0.7 D Basophils % 0.3 Nucleated RBC % 0 Sodium 141 Potassium 3.8 Chloride 108 H Carbon Dioxide 25 Anion Gap 8 BUN 12.6 Creatinine 0.6 Est GFR (CKD-EPI)AfAm 93.66 Est GFR (CKD-EPI)NonAf 80.81 Random Glucose 97 Calcium 8.8 Phosphorus 2.3 L Magnesium 2.2 Current Medications Generic Name Dose Route Start Last Admin Trade Name Freq PRN Reason Stop Dose Admin Diltiazem HCl 240 mg 04/13/20 10:00 04/14/20 10:18 Cardizem CD - PO 240 mg DAILY DARIA Administration Enoxaparin Sodium 40 mg 04/12/20 21:09 04/14/20 10:17 Lovenox - SQ 40 mg DAILY DARIA Administration Folic Acid 1 mg 04/14/20 10:00 04/14/20 10:18 Folic Acid - PO 1 mg DAILY DARIA Administration Ampicillin Sodium/Sulbactam 100 mls @ 200 mls/hr 04/13/20 11:15 04/14/20 10:19 Sodium 3 gm/ Sodium Chloride IVPB 200 mls/hr Q8H-IV DARIA Administration Potassium Phosphate 15 mm/ 255 mls @ 42.5 mls/hr 04/14/20 10:15 04/14/20 13:30 Sodium Chloride IVPB 04/14/20 16:14 42.5 mls/hr ONCE ONE Administration Home Medications Medication Instructions Recorded Diltiazem Cd [Cardizem Cd -] 240 mg PO DAILY 09/12/11 Multivit-Min/FA/Lycopene/Lut 1 each PO DAILY 04/21/12 [Centrum Silver Tablet] Omeprazole [Prilosec (RX)] 20 mg PO DAILY 04/21/12 ASSESSMENT AND PLAN: 89 yea risa female with history of HTN presents with RLE edema/redness/tenderness, associated with nausea, and 1 episode of vomiting. 1. Sepsis secondary to RLE Cellulitis and UTI Fever, leukocytosis resolved. US Duplex - negative for DVT, bilateral Patricia's Cysts. XRay Foot/Ankle - negative for bony injury Urine Cx - positive for LFNB > 100,000 CFU/ml Treated with Ceftriaxone/1 dose of Vanc - transitioned to Unasyn by ID pending final ID and Sens of Urine Cx. 2. HTN - Continue Diltiazem. 3. Macrocytic Anemia - B12 level 1657. Folic Acid borderline at 6. Supplemented. 4. Hypophosphatemia - repleted. DVT Px - Lovenox SQ
[2020-04-15] MEDS: AMPICILLIN NA/SULBACTAM NA 3 GM in SODIUM CHLORIDE 100 ML IVPB SCH ×2 (01:11→09:32)
[2020-04-15 06:36] VITALS: BP 130/57; PULSE 72; TEMP 98.3
[2020-04-15 08:06] LABS: HEMATOCRIT 32.9 % (32.4-45.2); HEMOGLOBIN 10.9 GM/dL (10.7-15.3); MCH 32.4 pg (25.7-33.7); MCHC 33.1 g/dl (32.0-36.0); MEAN PLT VOLUME 7.9 fl (7.5-11.1); PLATELET COUNT 240 K/MM3 (134-434); RBC 3.36 M/mm3 (3.60-5.2); RDW 12.2 % (11.6-15.6); WHITE BLOOD COUNT 5.6 K/mm3 (4.0-10.0)
[2020-04-15 08:36] LABS: BLOOD UREA NITROGEN 13.2 mg/dL (7-18); CREATININE 0.6 mg/dL (0.55-1.3); MAGNESIUM 2.3 mg/dL (1.8-2.4); PHOSPHOROUS 3.1 mg/dL (2.5-4.9); POTASSIUM 4.2 mmol/L (3.5-5.1)
[2020-04-15] MEDS ORDERED: PT OWN MED DRAWER 7, Y5N ONE (09:26)
[2020-04-15] MEDS: ENOXAPARIN NA (PORCINE) 40 MG/0.4 ML DISP.SYRIN SQ SCH (09:31)
[2020-04-15] MEDS: FOLIC ACID 1 MG TABLET (FP) PO SCH (09:31)
--- NOTE | 2020-04-15 14:59 | DS ---
Physical Exam: SUBJECTIVE: No overnight events. Patient seen and examined. Endorsed edema/erythema of R leg improved. Denied pain OBJECTIVE: Vital Signs Period Temp Pulse Resp BP Sys/[place] Pulse Ox Last 24 Hr 97.4 F-98.3 F 66-72 20-20 130-158/57-84 94-98 PHYSICAL EXAM GENERAL: The patient is awake, alert, and fully oriented, in no acute distress. HEENT: Normal with no signs of trauma. No ptosis. MMM LUNGS: Breath sounds equal, clear to auscultation bilaterally, no wheezes, no crackles, no accessory muscle use. HEART: Regular rate and rhythm, S1, S2, systolic murmur on L sternal border ABDOMEN: Soft, nontender, nondistended, normoactive bowel sounds EXTREMITIES: TP, DP 2+ b/l, warm, well-perfused, tone WNL, healed scratch/bite wound on R lateral leg// R LE edema. Less erythematous NEUROLOGICAL: Normal speech, gait not observed. PSYCH: Normal mood, normal affect. LABS Laboratory Results - last 24 hr 04/15/20 04/15/20 06:45 06:45 WBC 5.6 RBC 3.36 L Hgb 10.9 Hct 32.9 MCV 98.0 H MCH 32.4 MCHC 33.1 RDW 12.2 Plt Count 240 MPV 7.9 Sodium 141 Potassium 4.2 Chloride 108 H Carbon Dioxide 26 Anion Gap 8 BUN 13.2 Creatinine 0.6 Est GFR (CKD-EPI)AfAm 93.66 Est GFR (CKD-EPI)NonAf 80.81 Random Glucose 90 Calcium 9.0 Phosphorus 3.1 Magnesium 2.3 HOSPITAL COURSE: 89 YO F PMH HTN p/w acute-onset RLE erythema, edema, and pain w/ nausea and an episode of vomiting. Temperature was 100.4 F, HR 112, WBC 18.8. Admitted for sepsis 2/2 RLE cellulitis. US duplex LE: negative for DVT; b/l bakers cysts. S/p vanc & ceftriaxone. Given unasyn (ampillicin/sulbactam) 3 gm. UA- 2+ protein, sp gravity 1.024, trace ketones, 2+ blood, positive nitrites, ubili 1+, 3+ leuk est, >11 K wbc's, >10K bacteria, epi cells >36, casts- 13. Urine culture: lactose fermenting neg bacilli. CBC showed Macrocytic Anemia; B12 elevated 1657, but Folic acid was borderline normal (6). Given folate. HbgA1C 5.0. CXR: b/l increased lung markings likely 2/2 pour inspiratory effort, pulmonary venous congestion. EKG: NSR at 95/minute, LVH and QTc [address]-T wave changes. BNP 683. Pt's symptoms improved. Stable for discharge. Date of Admission:04/12/20 Date of Discharge: 04/15/20 Minutes to complete discharge: 47 Discharge Summary Problems reviewed: Yes Reason For Visit: UTI,CELLULITIS,LEUKOCYTOSIS Condition: Stable - Instructions Diet, Activity, Other Instructions: You came into the hospital for redness, swelling and pain in your right leg associated with nausea, vomiting, and fever. Ultrasound of your legs showed NO evidence of clots, but revealed cysts behind your knee. This is usually from arthritis. You were found to have an infection of your leg, so you were given antibiotics. An infectious disease physician evaluated your condition. X-ray of your foot/ankle did NOT show acute fracture, but showed swelling at the ankle, arthritic changes in the ankle, and a bony protrusion on your heel. Analysis and culture of your urine showed a urinary tract infection, which was treated with antibiotics used for your leg infection. Labwork showed that you had low hemoglobin in your blood, indicating anemia. Your folate levels were low, so please START taking folate supplements. Please follow-up with your primary care physician to get labwork for a Complete Blood Cell Count to re-evaluate your anemia. Hemoglobin A1c is a measure of how well the body's sugar is controlled. Your Hemoglobin A1C is 5.0, which is normal, indicating your blood sugar is well-controlled. Your symptoms improved. You are stable. MEDICATIONS Please START taking folate supplements 1mg once a day. Please START taking antibiotic vantin 200 mg every 12 hours for 7 more days. FOLLOW-UP Please follow-up with your primary care physician, Dr. Castaneda, to discuss your recent hospitalization and general health maintenance. Please follow-up with your primary care physician, ALSO, to get labwork for a Complete Blood Cell Count to re-evaluate your anemia. Please follow-up with infectious disease physician, Dr. Baez, regarding your leg infection and urinary tract infection. ADDITIONAL INSTRUCTIONS Please call 911 or come directly to the emergency department if you experience chest pain, shortness of breath, loss of alertness/awareness, loss of function, chest pain, unusual headache, vision change, difficulty speaking, numbness, tingling, unusual bleeding, or any alarming symptoms. Referrals: Elisa Baez MD [Staff Physician] - Thong Castaneda MD [Primary Care Provider] - Disposition: HOME - Home Medications Comprehensive Discharge Medication List: Ambulatory Orders Diltiazem Cd [Cardizem Cd -] 240 mg PO DAILY 09/12/11 Multivit-Min/FA/Lycopene/Lut [Centrum Silver Tablet] 1 each PO DAILY 04/21/12 Omeprazole [Prilosec (RX)] 20 mg PO DAILY 04/21/12 Candesartan Cilexetil [Atacand] 32 mg PO DAILY 04/14/20 Levothyroxine [Synthroid -] 50 mcg PO DAILY 04/14/20 Cefpodoxime Proxetil [Vantin -] 200 mg PO Q12H 7 Days #14 tablet 04/15/20 Folic Acid - 1 mg PO DAILY 30 Days #1 tablet 04/15/20 This patient is new to me today: No Emergency Visit: Yes ED Registration Date: 04/12/20 Care time: The patient presented to the Emergency Department on the above date and was hospitalized for further evaluation of their emergent condition. Critical Care patient: No - Discharge Referral Referred to [facility] No ATTENDING PHYSICIAN STATEMENT I saw and evaluated the patient. I reviewed the resident's note and discussed the case with the resident. I agree with the resident's findings and plan as documented. SUBJECTIVE: OBJECTIVE: ASSESSMENT AND PLAN:
--- NOTE | 2020-04-15 16:16 | PN ---
Teaching Attending Note Name of Resident: Anibal Garcia ATTENDING PHYSICIAN STATEMENT I saw and evaluated the patient. I reviewed the resident's note and discussed the case with the resident. I agree with the resident's findings and plan as documented. SUBJECTIVE: RLE discomfort, swelling, redness much improved. No fever/chills. OBJECTIVE: Fever resolved. Hemodynamically Stable. Last Vital Signs Temp Pulse Resp BP Pulse Ox 98.3 F 72 20 130/57 L 94 L 04/15/20 06:35 04/15/20 06:35 04/15/20 06:35 04/15/20 06:35 04/15/20 09:00 Heart - S1, S2, RRR Lungs - clear to auscultation Abdomen - Soft, non-tender. Bowel Sounds normal. Extremities - RLE edema+/erythema+/tenderness+. Neurovascularly intact. Neuro - AAO x 3. Tone/Power normal all extremities. Laboratory Results - last 24 hr 04/15/20 04/15/20 06:45 06:45 WBC 5.6 RBC 3.36 L Hgb 10.9 Hct 32.9 MCV 98.0 H MCH 32.4 MCHC 33.1 RDW 12.2 Plt Count 240 MPV 7.9 Sodium 141 Potassium 4.2 Chloride 108 H Carbon Dioxide 26 Anion Gap 8 BUN 13.2 Creatinine 0.6 Est GFR (CKD-EPI)AfAm 93.66 Est GFR (CKD-EPI)NonAf 80.81 Random Glucose 90 Calcium 9.0 Phosphorus 3.1 Magnesium 2.3 Home Medications Medication Instructions Recorded Diltiazem Cd [Cardizem Cd -] 240 mg PO DAILY 09/12/11 Multivit-Min/FA/Lycopene/Lut 1 each PO DAILY 04/21/12 [Centrum Silver Tablet] Omeprazole [Prilosec (RX)] 20 mg PO DAILY 04/21/12 Candesartan Cilexetil [Atacand] 32 mg PO DAILY 04/14/20 Levothyroxine [Synthroid -] 50 mcg PO DAILY 04/14/20 Cefpodoxime Proxetil [Vantin -] 200 mg PO Q12H 7 Days #14 tablet 04/15/20 Folic Acid - 1 mg PO DAILY 30 Days #1 tablet 04/15/20 ASSESSMENT AND PLAN: 89 year old female with history of HTN presents with RLE edema/redness/tenderness, associated with nausea, and 1 episode of vomiting. 1. Sepsis secondary to RLE Cellulitis and UTI Fever, leukocytosis resolved. US Duplex - negative for DVT, bilateral Patricia's Cysts. XRay Foot/Ankle - negative for bony injury Urine Cx - positive for Klebsiella Treated with Ceftriaxone/1 dose of Vanc - transitioned to Unasyn by ID for 3 days. For discharge on 7 additional days of Vantin. 2. HTN - Continue Diltiazem. 3. Macrocytic Anemia - B12 level 1657. Folic Acid borderline at 6. Supplemented. 4. Hypophosphatemia - repleted. Medically stable for discharge to complete Abx course. PCP follow up.
== END 2020-04-15 11:40 | disposition home or self-care (01) | DRG 872 ==
LOC: JER 16:42 → J8W 20:40
PROVIDERS: ADMIT Internal Medicine
DX: A41.9 Sepsis, unspecified organism (principal); N39.0 Urinary tract infection, site not specified; L03.115 Cellulitis of right lower limb; I10 Essential (primary) hypertension; D72.829 Elevated white blood cell count, unspecified; E66.9 Obesity, unspecified; R73.9 Hyperglycemia, unspecified; M71.22 Synovial cyst of popliteal space [Baker], left knee; M71.21 Synovial cyst of popliteal space [Baker], right knee; D53.9 Nutritional anemia, unspecified; E83.39 Other disorders of phosphorus metabolism; Z68.30 Body mass index [BMI] 30.0-30.9, adult
CPT/HCPCS: 36415; 71045-TC-FY; 73610-TC-RT-FY; 73630-TC-RT-FY; 80048; 80053; 81003; 82550; 82607; 82746; 83036; 83605; 83735; 83880; 84100; 84484; 85025; 85027; 85610; 85730; 87040; 87086; 87186; 93005; 93010; 93970-TC; 99285-25; U0003